=== PATIENT | female | born 1960 | race Caucasian/White ===

== ENCOUNTER → 2016-08-07 | Outpatient (CLI) | payer OTHER ==
[~2016-08-07] MED LIST: FISH OIL 1,001000 M2 PO; LEVOTHYROXINE 0.15MG PO; LISINOPRIL10 MG PO; NORCO 5-325 TA1 EACH PO; SIMVASTATIN40 MG PO; WELLBUTRIN XL150 MG PO
== END ==
LOC: RAD 02:30
DX: R92.0 Mammographic microcalcification found on diagnostic imaging of breast (principal)

== ENCOUNTER → 2016-10-12 | Outpatient (CLI) | payer OTHER | LOC: ULTRA 10:42 | DX: E04.9 Nontoxic goiter, unspecified (principal) ==

== ENCOUNTER → 2017-07-30 | Outpatient (CLI) | payer OTHER | LOC: RAD 14:07 | DX: Z12.31 Encounter for screening mammogram for malignant neoplasm of breast (principal) ==

== ENCOUNTER → 2018-08-01 | Outpatient (CLI) | payer OTHER | LOC: BC 12:15 | DX: Z12.31 Encounter for screening mammogram for malignant neoplasm of breast (principal) ==

== ENCOUNTER → 2019-09-01 | Outpatient (CLI) | payer OTHER | LOC: BC 11:38 → EDSTATUS 11:55 → BC 11:57 | PROVIDERS: ATTEND Neuromusculoskeletal Medicine & OMM | DX: Z12.31 Encounter for screening mammogram for malignant neoplasm of breast (principal) ==

== ENCOUNTER → 2020-02-29 | Outpatient (CLI) | payer OTHER | LOC: SJCVCIMAG 10:41 | PROVIDERS: ATTEND Neuromusculoskeletal Medicine & OMM | DX: I65.23 Occlusion and stenosis of bilateral carotid arteries (principal); I67.9 Cerebrovascular disease, unspecified; Z78.0 Asymptomatic menopausal state ==

== ENCOUNTER → 2020-09-02 | Outpatient (CLI) | payer OTHER | LOC: BC 11:15 | PROVIDERS: ATTEND Neuromusculoskeletal Medicine & OMM | DX: Z12.31 Encounter for screening mammogram for malignant neoplasm of breast (principal) ==